=== PATIENT | female | born 1950 | race Caucasian/White ===

== ENCOUNTER 2016-10-26 09:43 | Day surgery (SDC) | payer MEDICARE, OTHER ==
[~2016-10-26] VITALS: Ht 154.9 cm; Wt 87.3 kg
[2016-10-26 10:22] VITALS: Ht 154.9 cm; Wt 87.3 kg
[2016-10-26] MEDS ORDERED: VALTREX1000 MG PO (10:47)
[2016-10-26] MEDS ORDERED: BAYER CHEWABLE81 MG PO (10:48)
[2016-10-26] MEDS ORDERED: WELLBUTRIN XL150 M1 PO (10:48)
[2016-10-26] MEDS ORDERED: CYCLOBENZAPRINE10 MG PO (10:48)
[2016-10-26] MEDS ORDERED: CYMBALTA60 MG PO (10:49)
[2016-10-26] MEDS ORDERED: ALTOPREV40 MG PO (10:49)
[2016-10-26] MEDS ORDERED: GLUCOPHAGE500 MG PO (10:49)
[2016-10-26] MEDS ORDERED: MULTIPLE VITAMI1 TA1 PO (10:50)
[2016-10-26] MEDS ORDERED: PRESERVISION AR1 CAP PO (10:51)
[2016-10-26] MEDS ORDERED: OMEPRAZOLE20 M1 PO (10:51)
[2016-10-26] MEDS ORDERED: VITAMIN B-12100 MCG PO (10:51)
[2016-10-26 11:15] LABS: HEMATOCRIT 43.2 % (36.0-48.0); HEMOGLOBIN 14.2 g/dL (12-16); MCH 30.3 pg (26.0-34.0); MCHC 32.9 g/dL (31.0-37.0); MCV 92.3 fL (80.0-100.0); MEAN PLATELET VOLUME 9.6 fL (7.4-10.4); RBC 4.68 10x6/uL (4.00-5.40); RDW 14.5 % (11.5-14.5); WBC 4.1 10x3/uL (4.8-10.8)
[2016-10-26 11:34] LABS: CALC OSMOLALITY 290 mosm/kg (275-300); CALCIUM 9.2 mg/dL (8.5-10.1); CARBON DIOXIDE 28.4 mmol/L (21.0-32.0); CHLORIDE - SERUM 106 mmol/L (98-107); CREATININE - SERUM 0.7 mg/dL (0.6-1.3); GLUCOSE 118 mg/dL (74-106); POTASSIUM - SERUM 4.3 mmol/L (3.5-5.1); SODIUM 144 mmol/L (136-145); UREA NITROGEN 20 mg/dL (7-18); eGFR NON AFRICAN AMERICAN 89 mL/min (90-120)
--- NOTE | 2016-10-26 13:29 | NUR ---
PT SITTING UP WITH HOB ELEVATED, ON 3L O2 NC (USUAL MAINTENANCE DOSE). VSS. FAMILY AT BEDSIDE. MORE WAKEFUL AND TOLERATING LIQUIDS. WILL CONTINUE TO MONITOR. DR. SOMMER WAS AT BEDSIDE, SPEAKING WITH PT AND FAMILY ABOUT PROCEDURAL FINDINGS.
--- NOTE | 2016-10-26 13:46 | NUR ---
PT WAS DRINKING SODA AND COMPLAINING OF SOME BURNING. OFFERED A DIFFERENT BEVERAGE; MILK WAS REQUESTED. PT SIPPING ON FULL LIQUIDS WITHOUT DIFFICULTY. WILL CONTINUE TO MONITOR. 1340- IV D/C'D, PT TOLERATED. CATHETER INTACT.
--- NOTE | 2016-10-26 14:13 | NUR ---
1405- DISCHARGE INSTRUCTIONS COMPLETED, PT VERBAILIZED UNDERSTANDING. PAPERWORK SIGNED. 1410- PT DISCHARGED VIA WHEELCHAIR WITH FAMILY.
== END 2016-10-26 14:10 | disposition home or self-care (01) ==
LOC: D.OPS 09:43
PROVIDERS: Anesthesiology
DX: K21.0 Gastro-esophageal reflux disease with esophagitis (principal); K44.9 Diaphragmatic hernia without obstruction or gangrene; K29.70 Gastritis, unspecified, without bleeding; R12 Heartburn; Z01.812 Encounter for preprocedural laboratory examination

== ENCOUNTER 2018-05-06 07:31 | Day surgery (SDC) | payer MEDICARE, OTHER ==
[~2018-05-06] VITALS: Ht 154.9 cm; Wt 85.9 kg
[~2018-05-06 07:31] MED LIST: ALTOPREV40 MG PO; BAYER CHEWABLE81 MG PO; CYCLOBENZAPRINE10 MG PO; CYMBALTA60 MG PO; GLUCOPHAGE500 MG PO; MULTIPLE VITAMI1 TA1 PO; OMEPRAZOLE20 M1 PO; PRESERVISION AR1 CAP PO; VALTREX1000 MG PO; VITAMIN B-12100 MCG PO; WELLBUTRIN XL150 M1 PO
[2018-05-06 07:51] LABS: HEMATOCRIT 45.9 % (36.0-48.0); HEMOGLOBIN 15.2 g/dL (12-16); MCH 29.9 pg (26.0-34.0); MCHC 33.1 g/dL (31.0-37.0); MCV 90.4 fL (80.0-100.0); MEAN PLATELET VOLUME 9.8 fL (7.4-10.4); RBC 5.08 10x6/uL (4.00-5.40); RDW 14.3 % (11.5-14.5); WBC 3.4 10x3/uL (4.8-10.8)
[2018-05-06 08:00] LABS: ANION GAP 14.2 mmol/L (8-16); CALCIUM 8.9 mg/dL (8.5-10.1); CARBON DIOXIDE 27.2 mmol/L (21.0-32.0); CREATININE - SERUM 0.9 mg/dL (0.6-1.3); POTASSIUM - SERUM 4.4 mmol/L (3.5-5.1)
[2018-05-06] MEDS ORDERED: METOPROLOL TART25 MG PO (08:10)
[2018-05-06] MEDS ORDERED: PEPCID AC20 MG PO (08:10)
[2018-05-06 08:17] VITALS: Ht 154.9 cm; Wt 85.9 kg
--- NOTE | 2018-05-06 10:15 | OP ---
PATIENT NAME: WILLY ALBA MEDICAL RECORD: [id number] :48 LOCATION:[facility] ADMISSION DATE: SURGEON: SHARRON SOMMER DO DATE OF OPERATION: 05/06/2018 PROCEDURE: EGD with biopsies. INDICATIONS FOR PROCEDURE: Left upper quadrant abdominal pain, GERD, dysphagia. SCOPE: Olympus video gastroscope. MEDICATIONS: Propofol 150 mg IV per anesthesia. ESTIMATED BLOOD LOSS: Minimal. COMPLICATIONS: None. FINDINGS: Informed consent was given. The patient was made comfortable with the above medication. After reaching an adequate level of sedation by slow IV push, the patient was placed on her left side. The endoscope was advanced under direct visualization through the mouth to the second portion of the duodenum. The upper, middle, and lower thirds of the esophagus appeared normal. There were no strictures, rings, or other abnormalities. At the GE junction, there was evidence of LA class A reflux-induced esophagitis. Cold forceps biopsies were taken from the GE junction to rule out the presence of Mckeon's mucosa. The endoscope was advanced beyond the GE junction into the stomach and retroflexed to view the cardia, where a small sliding hiatal hernia was present. The entire stomach appeared normal without evidence of gastritis, polyps, or other abnormalities. Random cold forceps biopsies were taken from the antrum to rule out the presence of H. pylori. The endoscope was advanced beyond the pylorus into the duodenum. The bulb and first portion of the duodenum appeared normal. In the second portion of the duodenum, there was a small diverticulum noted. This was proximal to the ampulla and did not appear to be involving the ampullary site. The endoscope was withdrawn from the patient. The patient tolerated the procedure well and there were no complications. IMPRESSION: 1. LA class A reflux-induced esophagitis. 2. Small sliding hiatal hernia. 3. Duodenal diverticulum. RECOMMENDATIONS: 1. Discharge home when recovery parameters are met. 2. Follow up biopsy specimen results. 3. GERD diet and reflux precautions. 4. Continue current medications including omeprazole and famotidine for reflux. 5. Barium esophagram regarding ongoing dysphagia, which is in the proximal esophagus. 6. Consider esophageal manometry pending results of esophagram. Can also consider modified barium swallow based on the oropharyngeal type of dysphagia she describes. 7. We will discuss options with the patient regarding uncontrolled reflux while on medications. Since she does have a hiatal hernia, surgical consultation could be considered. We will discuss with the patient. OPERATIVE REPORT [id number] WILLY ALBA TRANSINT:[id number] Voice Confirmation ID: [id number] DOCUMENT ID: [id number] SHARRON SOMMER DO at 1015 CC: [id number] DICTATION DATE: 05/06/18904 RFID ENGINEER: 05/06/18 [id number] [id number] [place] [address]
== END 2018-05-06 10:14 | disposition home or self-care (01) ==
LOC: D.OPS 07:31
PROVIDERS: Anesthesiology
DX: K21.0 Gastro-esophageal reflux disease with esophagitis (principal); K44.9 Diaphragmatic hernia without obstruction or gangrene; K57.10 Diverticulosis of small intestine without perforation or abscess without bleeding; Z01.812 Encounter for preprocedural laboratory examination